=== PATIENT | female | born 1960 | race African-American/Black ===

== ENCOUNTER 2018-01-22 01:18 | Emergency (ER) | payer OTHER ==
[~2018-01-22] VITALS: Ht 170.2 cm; Wt 56.7 kg
[2018-01-22 01:56] VITALS: BP 146/65
== END 2018-01-22 04:29 | disposition home or self-care (01) ==
LOC: ER 01:22
DX: S83.91XA Sprain of unspecified site of right knee, initial encounter (principal); S09.90XA Unspecified injury of head, initial encounter; Y09 Assault by unspecified means; Y93.89 Activity, other specified; Y99.8 Other external cause status; Y92.89 Other specified places as the place of occurrence of the external cause
CPT/HCPCS: 29505; 70450; 73562